=== PATIENT | male | born 1965 | race Caucasian/White ===

== ENCOUNTER 2016-09-13 11:16 | Emergency (ER) | payer OTHER ==
[2016-09-13 11:23] VITALS: BP 106/63; PULSE 62; TEMP 97; O2SAT 100
[2016-09-13 11:24] VITALS: BMI 21.9
--- NOTE | 2016-09-13 12:05 | ED PDOC ---
Upper Extremity Pain/Injury Time Seen by Provider: 09/13/16 11:48 Chief Complaint (Nursing): Upper Extremity Problem/Injury Chief Complaint (Provider): Right shoulder pain History Per: Patient History/Exam Limitations: no limitations Onset/Duration Of Symptoms: Days (x 3 weeks) Current Symptoms Are (Timing): Still Present Additional Complaint(s): Aung is a 50 y/o male who presents to the ED complaining of right arm and shoulder pain, onset 3 weeks ago. Denies trauma or injury. Has not seen his primary medical doctor for this concern. Patient states taking Motrin intermittently, but last dose was 2 weeks ago. PMD: Unknown Past Medical History Reviewed: Historical Data, Nursing Documentation, Vital Signs Vital Signs: Last Vital Signs Temp 97 F L 09/13/16 11:23 Pulse 62 09/13/16 11:23 Resp BP 106/63 09/13/16 11:23 Pulse Ox 100 09/13/16 11:23 - Medical History PMH: Arthritis Denies: Fractures, Chronic Kidney Disease - Surgical History Surgical History: Hernia Repair - Family History Family History: States: Unknown Family Hx - Social History Current smoker - smoking cessation education provided: No Alcohol: None Drugs: Denies - Home Medications Home Medications: Ambulatory Orders Medication Instructions Recorded Docusate [Colace] 100 mg PO Q8 01/20/15 [id number] [Multivitamins] 1 tab PO DAILY 01/20/15 Oxycodone HCl/Acetaminophen 1 tab PO Q8 PRN 01/20/15 [Percocet 325 mg-5 mg] Oxycodone HCl/Acetaminophen 1 tab PO Q4 #15 tab 03/29/15 [Percocet 325 mg-5 mg] Polyethylene Glycol 3350 [Miralax] 1 tbs PO DAILY PRN #1 bottle 09/27/15 Naproxen [Naprosyn] 500 mg PO BID PRN #20 tablet 09/13/16 - Allergies Allergies/Adverse Reactions: Allergies Allergy/AdvReac Type Severity Reaction Status Date / Time No Known Allergies Allergy Verified 03/29/15 16:13 Review of Systems ROS Statement: Except As Marked, All Systems Reviewed And Found Negative Musculoskeletal: Positive for: Shoulder Pain (right), Arm Pain (right) Physical Exam - Reviewed Nursing Documentation Reviewed: Yes Vital Signs Reviewed: Yes - Physical Exam Appears: Positive for: Non-toxic, No Acute Distress Head Exam: Positive for: ATRAUMATIC, NORMAL INSPECTION, NORMOCEPHALIC Skin: Positive for: Normal Color, Warm, Dry Eye Exam: Positive for: EOMI, Normal appearance, PERRL Neck: Positive for: Normal, Painless ROM, Supple Cardiovascular/Chest: Positive for: Regular Rate, Rhythm. Negative for: Murmur Respiratory: Positive for: Normal Breath Sounds (Lungs clear bilaterally). Negative for: Accessory Muscle Use, Respiratory Distress Gastrointestinal/Abdominal: Positive for: Normal Exam, Soft. Negative for: Tenderness Back: Positive for: Normal Inspection. Negative for: L CVA Tenderness, R CVA Tenderness, Vertebral Tenderness Extremity: Positive for: Tenderness (On passive ROM he has pain with abduction) , Other (difficulty lifting shoulder) Neurologic/Psych: Positive for: Alert, Oriented - ECG O2 Sat by Pulse Oximetry: 100 (RA) Pulse Ox Interpretation: Normal - Progress Re-evaluation Time: 14:00 Condition: Re-examined, Improving,but remains with symptoms Medical Decision Making Medical Decision Making: Time: 12:01 Impression: Rotator cuff injury of right shoulder Plan: --Pending X-Ray Right Shoulder --Given Toradol 60 mg IM Scribe Attestation: Documented by Randa Key, acting as a scribe for Joanne Brink MD Provider Scribe Attestation: All medical record entries made by the Scribe were at my direction and personally dictated by me. I have reviewed the chart and agree that the record accurately reflects my personal performance of the history, physical exam, medical decision making, and the department course for this patient. I have also personally directed, reviewed, and agree with the discharge instructions and disposition. Disposition - Clinical Impression Clinical Impression: Shoulder pain, right - Patient ED Disposition Is Patient to be Admitted: No Doctor Will See Patient In The: Office Counseled Patient/Family Regarding: Diagnosis, Need For Followup, Rx Given - Disposition [facility]errals[facility] [[facility]] [facility] [Outside] Disposition: Routine/Home Disposition Time: 13:30 Condition: STABLE Prescriptions: Naproxen [Naprosyn] 500 mg PO BID PRN #20 tablet PRN Reason: Pain, Moderate (4-7) Instructions: Shoulder Pain (ED) Forms: [employer] [facility] (Gabonese)
--- NOTE | 2016-09-13 16:07 | RAD ---
PROCEDURE: Radiographs of the Right Shoulder HISTORY: pain for 3 weeks COMPARISON: No prior. FINDINGS: BONES: Normal. No fracture. JOINTS: Normal. Glenohumeral and acromioclavicular joints preserved. No osteoarthritis. SOFT TISSUES: Normal. OTHER FINDINGS: None. IMPRESSION: Unremarkable radiographs of the right shoulder. No preliminary report provided by emergency department personnel.
== END 2016-09-13 14:14 | disposition home or self-care (01) ==
LOC: H.ER 11:16
DX: M25.511 Pain in right shoulder (principal)

== ENCOUNTER 2016-09-26 10:56 | Emergency (ER) | payer OTHER ==
[2016-09-26 11:07] VITALS: BMI 21.4
[2016-09-26 11:08] VITALS: BP 107/74; PULSE 63; RESP 19; TEMP 98; O2SAT 100
--- NOTE | 2016-09-26 11:41 | ED PDOC ---
Upper Extremity Pain/Injury Time Seen by Provider: 09/26/16 11:27 Chief Complaint (Provider): R shoulder pain History Per: Patient History/Exam Limitations: no limitations Onset/Duration Of Symptoms: Days (8) Current Symptoms Are (Timing): Still Present Quality: "Pain" Exacerbating Factor(s): Movement Additional Complaint(s): Pt presents with R shoulder pain X 1 month, worse with movement, no trauma, no numbness/tingling. Was evaluated in [facility] ED 8 days ago, XR performed and given injection for pain. Returns today because pain still present, did not take any pain medication for past 8 days. Has yet to make appt with Clinic. Past Medical History Reviewed: Nursing Documentation, Vital Signs Vital Signs: Last Vital Signs Temp 98 F 09/26/16 11:07 Pulse 63 09/26/16 11:07 Resp 19 09/26/16 11:07 BP 107/74 09/26/16 11:07 Pulse Ox 100 09/26/16 11:07 - Medical History PMH: Arthritis Denies: Fractures, Chronic Kidney Disease - Surgical History Surgical History: Hernia Repair - Family History Family History: States: Unknown Family Hx - Home Medications Home Medications: Ambulatory Orders Medication Instructions Recorded Docusate [Colace] 100 mg PO Q8 01/20/15 [id number] [Multivitamins] 1 tab PO DAILY 01/20/15 Oxycodone HCl/Acetaminophen 1 tab PO Q8 PRN 01/20/15 [Percocet 325 mg-5 mg] Oxycodone HCl/Acetaminophen 1 tab PO Q4 #15 tab 03/29/15 [Percocet 325 mg-5 mg] Polyethylene Glycol 3350 [Miralax] 1 tbs PO DAILY PRN #1 bottle 09/27/15 Naproxen [Naprosyn] 500 mg PO BID PRN #20 tablet 09/13/16 Cyclobenzaprine [Cyclobenzaprine 10 mg PO TID PRN #15 tab 09/26/16 HCl] Naproxen [Naprosyn] 500 mg PO BID PRN #15 tablet 09/26/16 - Allergies Allergies/Adverse Reactions: Allergies Allergy/AdvReac Type Severity Reaction Status Date / Time No Known Allergies Allergy Verified 09/26/16 11:45 Review of Systems Constitutional: Negative for: Fever Cardiovascular: Negative for: Chest Pain Respiratory: Negative for: Cough, Shortness of Breath Musculoskeletal: Positive for: Shoulder Pain. Negative for: Neck Pain, Arm Pain , Back Pain Skin: Negative for: Rash, Lesions Neurological: Negative for: Weakness, Numbness, Headache Physical Exam - Reviewed Nursing Documentation Reviewed: Yes Vital Signs Reviewed: Yes - Physical Exam Appears: Positive for: Well, No Acute Distress Skin: Positive for: Normal Color, Warm, Dry Cardiovascular/Chest: Positive for: Regular Rate, Rhythm Respiratory: Positive for: Normal Breath Sounds Back: Positive for: Normal Inspection. Negative for: L CVA Tenderness, R CVA Tenderness Extremity: Positive for: Normal ROM, Tenderness (R upper posterior shoulder tenderness), Capillary Refill (<2 sec). Negative for: Deformity, Swelling Neurologic/Psych: Positive for: Alert, Oriented. Negative for: Motor/Sensory Deficits - ECG O2 Sat by Pulse Oximetry: 100 Medical Decision Making Medical Decision Making: XR R shoulder reviewed from previous visit: Accession No. : [id number] Patient Name / ID : SALUD HERNANDEZ / [id number] Exam Date : 09/13/2016 12:12:44 ( Approved ) Study Comment : Sex / Age : M / 50Y Creator : Flavio Mercado MD Dictator : Flavio Mercado MD Combat Systems Operator : Mortar Maker : Flavio Mercado MD Approver2 : Report Date : 09/13/2016 16:05:07 My Comment : PROCEDURE: Radiographs of the Right Shoulder HISTORY: pain for 3 weeks COMPARISON: No prior. FINDINGS: BONES: Normal. No fracture. JOINTS: Normal. Glenohumeral and acromioclavicular joints preserved. No osteoarthritis. SOFT TISSUES: Normal. OTHER FINDINGS: None. IMPRESSION: Unremarkable radiographs of the right shoulder. Disposition - Clinical Impression Clinical Impression: Shoulder pain, right - Disposition Referrals: [facility] [Outside] Disposition: Routine/Home Disposition Time: 11:46 Condition: STABLE Prescriptions: Cyclobenzaprine [Cyclobenzaprine HCl] 10 mg PO TID PRN #15 tab PRN Reason: Pain Naproxen [Naprosyn] 500 mg PO BID PRN #15 tablet PRN Reason: Pain, Moderate (4-7) Instructions: Shoulder Pain (ED) Forms: [facility] [employer] [facility] (Turkish) Print Language: FAROESE
== END 2016-09-26 12:44 | disposition home or self-care (01) ==
LOC: H.ER 10:56
DX: M25.511 Pain in right shoulder (principal)

== ENCOUNTER 2017-09-10 10:10 | Emergency (ER) | payer OTHER ==
[2017-09-10 10:18] VITALS: BP 108/71; PULSE 60; TEMP 97; O2SAT 99
[2017-09-10 10:19] VITALS: BMI 24.2
--- NOTE | 2017-09-10 10:56 | ED PDOC ---
HPI: Abdomen Time Seen by Provider: 09/10/17 10:29 Chief Complaint (Nursing): Abdominal Pain Chief Complaint (Provider): Abdominal Pain History Per: Patient History/Exam Limitations: no limitations Onset/Duration Of Symptoms: Days (x 2 weeks), Intermittent Episodes Quality Of Discomfort: "Pain" Associated Symptoms: Nausea. denies: Fever, Vomiting Last Bowel Movement: Today Additional Complaint(s): 51 year old male presents to the ED with intermittent episodes of lower abdominal pain for the last 2 weeks, associated with nausea. Patient reports last bowel movement was this morning. He has not taken any medication for the pain. Denies vomiting, fever, constipation, diarrhea, hematuria, dysuria, frequency and incontinence. PMD: none provided Past Medical History Reviewed: Historical Data, Nursing Documentation, Vital Signs Vital Signs: Last Vital Signs Temp 97 F L 09/10/17 10:18 Pulse 60 09/10/17 10:18 Resp BP 108/71 09/10/17 10:18 Pulse Ox 99 09/10/17 15:49 - Medical History PMH: Arthritis Denies: Fractures, Chronic Kidney Disease - Surgical History Surgical History: Hernia Repair - Family History Family History: States: Unknown Family Hx - Home Medications Home Medications: Ambulatory Orders Medication Instructions Recorded Docusate [Colace] 100 mg PO Q8 01/20/15 [id number] [Multivitamins] 1 tab PO DAILY 01/20/15 Oxycodone HCl/Acetaminophen 1 tab PO Q8 PRN 01/20/15 [Percocet 325 mg-5 mg] Oxycodone HCl/Acetaminophen 1 tab PO Q4 #15 tab 03/29/15 [Percocet 325 mg-5 mg] Polyethylene Glycol 3350 [Miralax] 1 tbs PO DAILY PRN #1 bottle 09/27/15 Naproxen [Naprosyn] 500 mg PO BID PRN #20 tablet 09/13/16 Cyclobenzaprine [Cyclobenzaprine 10 mg PO TID PRN #15 tab 09/26/16 HCl] Naproxen [Naprosyn] 500 mg PO BID PRN #15 tablet 09/26/16 Ciprofloxacin [Cipro] 500 mg PO BID #19 tab 09/10/17 metroNIDAZOLE [Flagyl] 500 mg PO TID #29 tab 09/10/17 - Allergies Allergies/Adverse Reactions: Allergies Allergy/AdvReac Type Severity Reaction Status Date / Time No Known Allergies Allergy Verified 09/10/17 10:26 Review of Systems ROS Statement: Except As Marked, All Systems Reviewed And Found Negative Constitutional: Negative for: Fever Gastrointestinal: Positive for: Nausea, Abdominal Pain. Negative for: Vomiting , Diarrhea, Constipation Genitourinary Male: Negative for: Dysuria, Frequency, Incontinence, Hematuria Physical Exam - Reviewed Nursing Documentation Reviewed: Yes Vital Signs Reviewed: Yes - Physical Exam Appears: Positive for: Non-toxic, No Acute Distress Head Exam: Positive for: ATRAUMATIC, NORMAL INSPECTION, NORMOCEPHALIC Skin: Positive for: Normal Color, Warm, Dry Eye Exam: Positive for: EOMI, Normal appearance, PERRL Neck: Positive for: Normal, Painless ROM, Supple Cardiovascular/Chest: Positive for: Regular Rate, Rhythm. Negative for: Murmur Respiratory: Positive for: Normal Breath Sounds. Negative for: Wheezing, Respiratory Distress Gastrointestinal/Abdominal: Positive for: Soft, Tenderness (mild lower left quadrant tenderness ). Negative for: Distended, Guarding, Rebound Extremity: Positive for: Normal ROM. Negative for: Deformity Neurologic/Psych: Positive for: Alert, Oriented (x 3). Negative for: Motor/ Sensory Deficits - Laboratory Results Result Diagrams: 09/10/17 12:00 09/10/17 12:00 - ECG O2 Sat by Pulse Oximetry: 99 (RA) Pulse Ox Interpretation: Normal Medical Decision Making Medical Decision Makin:47 Impression: abdominal pain Initial Plan: --Abdomen Pelvis CT --CBC --PTT --Prothrombin --UA --Urine dip 13:[address] FINDINGS: LOWER THORAX: Limited bilateral basilar dependent atelectasis. No pleural or pericardial effusion. LIVER: There are a few lucencies which is stable at the dome and right lobe liver too small to characterize. Liver remains upper limits normal size. GALLBLADDER AND BILE DUCTS: Unremarkable. PANCREAS: Unremarkable. No gross lesion or ductal dilatation. SPLEEN: Unremarkable. ADRENALS: Unremarkable. No mass. KIDNEYS AND URETERS: There is a stable small cyst mid to lower pole left kidney with bilateral kidneys otherwise unremarkable. VASCULATURE: Unremarkable. No aortic aneurysm. BOWEL: The stomach is distended with retained fluid and food and otherwise appears grossly nonfocal. Left colonic diverticular changes are infrequently identified with thickening of the distal descending and proximal sigmoid segment accompanied by a local pericolic reaction compatible with segmental colitis. Diverticulitis is favored. Other etiologies are possible and follow- up colonoscopy advised following therapy to exclude underlying neoplasm. No abscess or free air identified. Small bowel appears grossly nonfocal. APPENDIX: Not identified. No CT evidence of appendicitis. PERITONEUM: Unremarkable. No free fluid. No free air. LYMPH NODES: Unremarkable. No enlarged lymph nodes. BLADDER: Unremarkable. REPRODUCTIVE: Mildly enlarged prostate gland noted. BONES: Borderline L5-S1 retrolisthesis. OTHER FINDINGS: None. IMPRESSION: 1. Limited segmental colitis distal descending proximal sigmoid colon likely on basis of diverticulitis. Clinically correlate further. Follow-up colonoscopy advised following therapy to exclude potential underlying lesion here. 2. 2 stable lucency is seen at the dome in right lobe liver. 3. Stable cyst mid to lower pole left kidney. 13:38 --Flagyl 100 ml IVPB --Ciprofloxacin 400 mg in 200 ml IV ---- Scribe Attestation: Documented by Meghan Kwok, acting as a scribe for Eva Kitchen MD Provider Scribe Attestation: All medical record entries made by the Scribe were at my direction and personally dictated by me. I have reviewed the chart and agree that the record accurately reflects my personal performance of the history, physical exam, medical decision making, and the department course for this patient. I have also personally directed, reviewed, and agree with the discharge instructions and disposition. Disposition - Clinical Impression Clinical Impression: Diverticulitis - Patient ED Disposition Is Patient to be Admitted: No - Disposition Referrals: [facility] [Outside] [facility] [Outside] Farshad Henderson MD [Staff Provider] - Disposition: Routine/Home Disposition Time: 14:44 Condition: STABLE Additional Instructions: DAVID BRANNON, thank you for letting us take care of you today. Your provider was Eva Kitchen MD and you were treated for LOWER ABD PAIN. The emergency medical care you received today was directed at your acute symptoms. If you were prescribed any medication, please fill it and take as directed. It may take several days for your symptoms to resolve. Return to the Emergency Department if your symptoms worsen, do not improve, or if you have any other problems. Please contact your doctor or call one of the physicians/clinics you have been referred to that are listed on the Patient Visit Information form that is included in your discharge packet. Bring any paperwork you were given at discharge with you along with any medications you are taking to your follow up visit. Our treatment cannot replace ongoing medical care by a primary care provider outside of the emergency department. Thank you for allowing the [facility] team to be part of your care today. If you had an X-Ray or CT scan: A Radiologist will review the ED reading if any change in treatment is needed we will contact you. If you had a blood, urine, or wound culture: It will take several days for the results, if any change in treatment is needed we will contact you. If you had an STI test: It will take 48 hours for the results. Please call after 1 week if you have not heard back. Prescriptions: Ciprofloxacin [Cipro] 500 mg PO BID #19 tab metroNIDAZOLE [Flagyl] 500 mg PO TID #29 tab Instructions: Diverticulitis Forms: [employer] (Romanian) Print Language: TAMAZIGHT
[2017-09-10 12:10] LABS: BASO # 0.1 K/uL (0.0-0.2); BASO % 0.8 % (0.0-2.0); EOS # 1.3 K/uL (0.0-0.7); HEMOGLOBIN 15.1 g/dL (12.0-18.0); LYMPH # 1.5 K/uL (1.0-4.3); LYMPH % 19.8 % (20.0-40.0); MEAN CELL VOLUME 92.2 fl (80.0-94.0); MEAN CORPUSCULAR HEMOGLOBIN 31.9 pg (27.0-31.0); MEAN CORPUSCULAR HGB CONC 34.6 g/dL (33.0-37.0); MEAN PLATELET VOLUME 8.9 fl (7.2-11.7); MONO # 0.6 K/uL (0.0-0.8); MONO % 8.1 % (0.0-10.0); NEUT # 4.3 K/uL (1.8-7.0); NEUT % 54.3 % (50.0-75.0); NRBC % 0.1 % (0.0-0.0); RBC 4.75 Mil/uL (4.40-5.90); RED CELL DISTRIBUTION WIDTH 13.7 % (11.5-14.5); WHITE BLOOD COUNT 7.8 K/uL (4.8-10.8)
[2017-09-10 12:20] LABS: URINE BILIRUBIN NEGATIVE (NEGATIVE); URINE BLOOD NEGATIVE (NEGATIVE); URINE CLARITY CLEAR (Clear); URINE COLOR YELLOW (YELLOW); URINE GLUCOSE (UA) NEG (Normal); URINE LEUKOCYTE ESTERASE NEG Leu/uL (Negative); URINE PROTEIN NEGATIVE (NEGATIVE); URINE UROBILINOGEN 0.2-1.0 mg/dL (0.2-1.0)
[2017-09-10 12:22] LABS: CALCIUM 8.7 mg/dL (8.4-10.2); GFR AFRICAN-AMERICAN > 60; GFR NON-AFRICAN AMERICAN > 60
[2017-09-10 12:25] LABS: ALB/GLOB RATIO 1.4 (1.0-2.1); ALBUMIN 4.2 g/dL (3.5-5.0); ALT/SGPT 29 U/L (21-72); AST/SGOT 42 U/L (17-59); BLOOD UREA NITROGEN 16 mg/dl (9-20)
[2017-09-10] MEDS ORDERED: Sodium Chloride 0.9% 50 ML IV ONE (12:32)
[2017-09-10] MEDS ORDERED: Iohexol 300 100 ML IJ ONE (12:32)
--- NOTE | 2017-09-10 13:15 | CT ---
Date of service: 09/10/2017 PROCEDURE: CT Abdomen and Pelvis with contrast HISTORY: LLQ pain COMPARISON: Abdomen pelvis CT with contrast 03/29/2015. TECHNIQUE: Following the intravenous administration of iodinated contrast material, a CT examination of the abdomen and pelvis performed from the domes of the diaphragms to the symphysis pubis with reformatted datasets provided in axial, sagittal and coronal planes. Oral contrast was not administered as per referring physician request. Contrast dose: Omnipaque 300, 95 cc Radiation dose: Total exam DLP = 371.21 mGy-cm. This CT exam was performed using one or more of the following dose reduction techniques: Automated exposure control, adjustment of the mA and/or kV according to patient size, and/or use of iterative reconstruction technique. FINDINGS: LOWER THORAX: Limited bilateral basilar dependent atelectasis. No pleural or pericardial effusion. LIVER: There are a few lucencies which is stable at the dome and right lobe liver too small to characterize. Liver remains upper limits normal size. GALLBLADDER AND BILE DUCTS: Unremarkable. PANCREAS: Unremarkable. No gross lesion or ductal dilatation. SPLEEN: Unremarkable. ADRENALS: Unremarkable. No mass. KIDNEYS AND URETERS: There is a stable small cyst mid to lower pole left kidney with bilateral kidneys otherwise unremarkable. VASCULATURE: Unremarkable. No aortic aneurysm. BOWEL: The stomach is distended with retained fluid and food and otherwise appears grossly nonfocal. Left colonic diverticular changes are infrequently identified with thickening of the distal descending and proximal sigmoid segment accompanied by a local pericolic reaction compatible with segmental colitis. Diverticulitis is favored. Other etiologies are possible and follow-up colonoscopy advised following therapy to exclude underlying neoplasm. No abscess or free air identified. Small bowel appears grossly nonfocal. APPENDIX: Not identified. No CT evidence of appendicitis. PERITONEUM: Unremarkable. No free fluid. No free air. LYMPH NODES: Unremarkable. No enlarged lymph nodes. BLADDER: Unremarkable. REPRODUCTIVE: Mildly enlarged prostate gland noted. BONES: Borderline L5-S1 retrolisthesis. OTHER FINDINGS: None. IMPRESSION: 1. Limited segmental colitis distal descending proximal sigmoid colon likely on basis of diverticulitis. Clinically correlate further. Follow-up colonoscopy advised following therapy to exclude potential underlying lesion here. 2. 2 stable lucency is seen at the dome in right lobe liver. 3. Stable cyst mid to lower pole left kidney.
[2017-09-10 13:21] LABS: PROTHROMBIN TIME 10.9 Seconds (9.8-13.1)
[2017-09-10 13:24] LABS: PARTIAL THROMBOPLASTIN TIME 32.2 Seconds (25.6-37.1)
[2017-09-10] MEDS ORDERED: metroNIDAZOLE 500mg/100ml NS 100 ML IV STA (13:38)
[2017-09-10] MEDS ORDERED: Ciprofloxacin 400mg/200ml D5W 400 MG/200 ML BAG IV STA (13:38)
[2017-09-10] MEDS ORDERED: Ciprofloxacin 400mg/200ml D5W 400 MG/200 ML BAG IVPB ONE (13:46)
[2017-09-10] MEDS ORDERED: metroNIDAZOLE 500mg/100ml NS 100 ML IVPB ONE (15:21)
== END 2017-09-10 17:21 | disposition home or self-care (01) ==
LOC: H.ER 10:10
DX: K57.92 Diverticulitis of intestine, part unspecified, without perforation or abscess without bleeding (principal); N28.1 Cyst of kidney, acquired; K52.9 Noninfective gastroenteritis and colitis, unspecified
CPT/HCPCS: 74177; 80053; 81003; 85025; 85610; 85730; 99283; J0744; Q9967

== ENCOUNTER 2017-11-13 10:15 | Emergency (ER) | payer OTHER ==
[2017-11-13 10:16] VITALS: BMI 24.2
[2017-11-13 10:20] VITALS: TEMP 97.9; O2SAT 100
--- NOTE | 2017-11-13 10:41 | ED PDOC ---
HPI: Head Injury Time Seen by Provider: 11/13/17 10:32 History Per: Patient Injury Occurred (Timing): Days Ago: (8) Onset/Duration Of Symptoms: Days (8) Patient States: Fell Striking Head Severity: Mild Loss Of Consciousness: No Additional Complaint(s): Fell and hit head 8 days ago. No LOC. C/o headache. Denies dizziness or focal weakness. Also c/o right shoulder pain. Past Medical History Vital Signs: Last Vital Signs Temp 97.9 F 11/13/17 10:19 Pulse 91 H 11/13/17 10:19 Resp 17 11/13/17 10:19 BP 122/73 11/13/17 10:19 Pulse Ox 100 11/13/17 10:19 - Medical History PMH: Arthritis Denies: Fractures, Chronic Kidney Disease - Surgical History Surgical History: Hernia Repair - Family History Family History: States: Unknown Family Hx - Home Medications Home Medications: Ambulatory Orders Medication Instructions Recorded Docusate [Colace] 100 mg PO Q8 01/20/15 [id number] [Multivitamins] 1 tab PO DAILY 01/20/15 Oxycodone HCl/Acetaminophen 1 tab PO Q8 PRN 01/20/15 [Percocet 325 mg-5 mg] Oxycodone HCl/Acetaminophen 1 tab PO Q4 #15 tab 03/29/15 [Percocet 325 mg-5 mg] Polyethylene Glycol 3350 [Miralax] 1 tbs PO DAILY PRN #1 bottle 09/27/15 Naproxen [Naprosyn] 500 mg PO BID PRN #20 tablet 09/13/16 Cyclobenzaprine [Cyclobenzaprine 10 mg PO TID PRN #15 tab 09/26/16 HCl] Naproxen [Naprosyn] 500 mg PO BID PRN #15 tablet 09/26/16 Ciprofloxacin [Cipro] 500 mg PO BID #19 tab 09/10/17 metroNIDAZOLE [Flagyl] 500 mg PO TID #29 tab 09/10/17 Naproxen [Naprosyn] 500 mg PO Q12H #20 tab 11/13/17 - Allergies Allergies/Adverse Reactions: Allergies Allergy/AdvReac Type Severity Reaction Status Date / Time No Known Allergies Allergy Verified 09/10/17 10:26 Review of Systems ROS Statement: Except As Marked, All Systems Reviewed And Found Negative Musculoskeletal: Positive for: Shoulder Pain Neurological: Positive for: Headache Physical Exam - Reviewed Nursing Documentation Reviewed: Yes Vital Signs Reviewed: Yes - Physical Exam Appears: Positive for: Non-toxic, No Acute Distress Head Exam: Positive for: ATRAUMATIC, NORMAL INSPECTION, NORMOCEPHALIC Skin: Positive for: Normal Color, Warm, DRY Eye Exam: Positive for: EOMI, Normal appearance, PERRL ENT: Positive for: Normal ENT Inspection Neck: Positive for: Normal, Painless ROM Cardiovascular/Chest: Positive for: Regular Rate, Rhythm Respiratory: Positive for: CNT, Normal Breath Sounds Gastrointestinal/Abdominal: Positive for: Normal Exam, Soft Back: Positive for: Normal Inspection Extremity: Positive for: Normal ROM Neurologic/Psych: Positive for: Alert, Oriented - ECG O2 Sat by Pulse Oximetry: 100 Disposition - Clinical Impression Clinical Impression: Head injury, Shoulder contusion - Patient ED Disposition Is Patient to be Admitted: No Counseled Patient/Family Regarding: Studies Performed, Diagnosis, Need For Followup, Rx Given - Disposition Referrals: [facility] [Outside] Disposition: Routine/Home Disposition Time: 13:21 Condition: FAIR Prescriptions: Naproxen [Naprosyn] 500 mg PO Q12H #20 tab Instructions: Closed Head Injury, Contusion (DC)
--- NOTE | 2017-11-13 11:25 | CT ---
Date of service: 11/13/2017 PROCEDURE: CT HEAD WITHOUT CONTRAST. HISTORY: r/o bleed COMPARISON: None available. TECHNIQUE: Axial computed tomography images were obtained through the head/brain without intravenous contrast. Radiation dose: Total exam DLP = 850.01 mGy-cm. This CT exam was performed using one or more of the following dose reduction techniques: Automated exposure control, adjustment of the mA and/or kV according to patient size, and/or use of iterative reconstruction technique. FINDINGS: HEMORRHAGE: No intracranial hemorrhage. BRAIN: Good corticomedullary differentiation is preserved with no cortical edema appreciated above or below the tentorium or throughout the brainstem. Note is made of trace periventricular white matter lucency compatible with minimal chronic microangiopathy. Remaining white matter is unremarkable including throughout the corpus callosum. There is no mass effect and the extra-axial spaces appear grossly nonfocal. Midline brain anatomy appears grossly nonfocal throughout. VENTRICLES: Unremarkable. No hydrocephalus. CALVARIUM: Unremarkable. PARANASAL SINUSES: Unremarkable as visualized. No significant inflammatory changes. MASTOID AIR CELLS: Unremarkable as visualized. No inflammatory changes. OTHER FINDINGS: None. IMPRESSION: No definite acute intracranial findings. Trace chronic microangiopathy identified which appears age appropriate. Examination otherwise unremarkable.
--- NOTE | 2017-11-13 12:53 | RAD ---
Date of service: 11/13/2017 PROCEDURE: Radiographs of the Right Shoulder HISTORY: trauma COMPARISON: No prior. FINDINGS: BONES: Normal. No fracture. JOINTS: Normal. Glenohumeral and acromioclavicular joints preserved. No osteoarthritis. SOFT TISSUES: Normal. OTHER FINDINGS: None. IMPRESSION: Normal radiographs of the right shoulder.
[2017-11-13 13:48] VITALS: BP 125/80; PULSE 75; RESP 16
== END 2017-11-13 13:48 | disposition home or self-care (01) ==
LOC: H.ER 10:15
DX: S09.90XA Unspecified injury of head, initial encounter (principal); S40.019A Contusion of unspecified shoulder, initial encounter; W19.XXXA Unspecified fall, initial encounter